=== PATIENT | female | born 1990 | race Caucasian/White ===

== ENCOUNTER 2020-07-30 08:38 | Emergency (ER) | payer OTHER, SELFPAY ==
[2020-07-30 08:51] VITALS: BP 141/91; PULSE 85; RESP 18; TEMP 36.4; O2SAT 100; BMI 34.9
--- NOTE | 2020-07-30 08:56 | DI.US.S_ITS ---
PROCEDURE: US PELVIC COMPLETE INDICATIONS: PELVIC PAIN. EVALUATE FOR IUD PLACEMENT. TECHNIQUE: Real-time scanning was performed of the pelvic organs, with image documentation. Additional endovaginal scanning was necessary due to incomplete visualization of the adnexal and endometrial structures by transabdominal scanning. COMPARISON: None. FINDINGS: Uterus: Uterus is normal in size at 7.5 x 3.4 x 3.1 cm. The endometrium measures 3-4 mm in combined thickness. A small amount of fluid can be seen along the cervix. An IUD is seen at its expected location. The lateral margins of the cross bars are seen near the margins of the uterus itself. Ovaries: The right ovary measures 4.4 x 2.6 x 2 cm. The left ovary measures 4.6 x 2.9 x 2.1 cm and demonstrates a complex cyst that measures up to 2.3 cm. The ovaries otherwise have a normal sonographic appearance. No adnexal masses are seen. Normal appearing arterial waveforms are confirmed to each ovary. Other: There is a moderate amount of complex fluid seen within the right adnexal region. IMPRESSION: The IUD is appropriately located at the uterine fundus. The lateral margins of the IUD crossbars are seen near the lateral margins of the uterus itself. A moderate amount of complex fluid can be seen within the right adnexal region. Although considered to be relatively unlikely, please consider ectopic in this patient with an IUD. Close clinical followup, with serial beta-hCG and serial ultrasound are recommended, if clinically appropriate. There is a complex left ovarian cyst seen a, which most likely relates to a hemorrhagic cyst, measuring up to 2.3 cm. At clinical discretion, a followup pelvic ultrasound could be considered in 6 weeks to assure resolution/ improvement. Dictated by: Brian Bullock M.D. on 07/30/2020 at 9:43 Approved by: Brian Bullock M.D. on 07/30/2020 at 9:48
--- NOTE | 2020-07-30 09:00 | ED.GENADULT ---
HPI - General Adult General Chief complaint: Abdominal Pain Stated complaint: extreme pelvic pain/ think IUD problem Time Seen by Provider: 07/30/20 08:55 Source: patient Mode of arrival: Ambulatory Limitations: no limitations History of Present Illness HPI narrative: Patient is a 30-year-old female who had a Mirena IUD placed in March of 2017 who 2 weeks ago had discomfort in her vagina. She stated that after approximately 10-15 minutes this pain completely resolved. It returned again approximately 5 days ago and She was seen by her primary OBGYN 4 days ago on the [facility] base who did a speculum exam and was able to see the IUD strings however they informed her that they wanted her to have an ultrasound. She states the pain has continued since then and she comes emergency department today for evaluation. Related Data Home Medications Medication Instructions Recorded Confirmed No Known Home Medications 07/30/20 07/30/20 Allergies Allergy/AdvReac Type Severity Reaction Status Date / Time No Known Drug Allergies Allergy Verified 07/30/20 08:54 Review of Systems Constitutional Constitutional: Denies fever(s) Cardiovascular Cardiovascular: Denies chest pain and Denies dyspnea Respiratory Respiratory: Denies dyspnea Gastrointestinal Gastrointestinal: Denies abdominal pain, Denies change in bowel habits, Denies nausea and Denies vomiting Genitourinary Genitourinary: Denies vaginal discharge Comments: Pain inside her vagina Musculoskeletal Musculoskeletal: Denies arthralgias and Denies myalgias Integumentary/Breasts Skin/Breast: Denies rash Neurologic Neurologic: Denies behavioral changes Psychiatric Psychiatric: Denies behavioral changes Hematologic/Lymphatic On Anticoagulants: No Allergic/Immunologic Allergic/Immunologic: Denies urticaria Patient History Medical History Healthy adult Social History Smoking Status: Former smoker Smoking Status: Former smoker alcohol intake frequency: 0-2 drinks per day Substance Use Type: does not use Exam Initial Vital Signs Initial Vital Signs: Vital Signs Temperature 97.6 F 07/30/20 08:51 Pulse Rate 85 07/30/20 08:51 Respiratory Rate 18 07/30/20 08:51 Blood Pressure 141/91 H 07/30/20 08:51 Pulse Oximetry 100 07/30/20 08:51 Const General: cooperative and comfortable Limitations: mental status not altered HENMT Head: normal to inspection and normocephalic Resp Effort & Inspection: normal respiratory effort Cardio Rate: regular rate GI Inspection: non-distended Skin Lesions: no lesions Rashes: no rashes Neuro General: patient alert and patient awake Cognition: normal cognition Extrem General: normal to inspection Psych Appearance: grossly normal and well kempt Course Orders Ordered: ED Orders 07/30/20 08:56 US pelvic complete Stat Vital Signs Vital signs: Vital Signs - 8 hr 07/30/20 08:51 Temperature 97.6 F Pulse Rate 85 Respiratory Rate 18 Blood Pressure 141/91 H Pulse Oximetry 100 Medical Decision Making Lab Data Lab results reviewed: Yes I reviewed the patient's lab results. Labs: Point of Care Testing Test Results Negative Urine Dip Bedside Urine Glucose Negative Bedside Urine Bilirubin - Negative Bedside Urine Ketone - Negative Urine Specific [place] 1.015 Bedside Urine Occult Blood +++ Bedside Urine pH 7.0 Bedside Urine Protein - Negative Bedside Urine Urobilinogen - Negative Bedside Urine Nitrite - Negative Bedside Urine Leukocytes - Negative Esterase Point of care testing: Point of Care Testing Test Results Negative Urine Dip Bedside Urine Glucose Negative Bedside Urine Bilirubin - Negative Bedside Urine Ketone - Negative Urine Specific [place] 1.015 Bedside Urine Occult Blood +++ Bedside Urine pH 7.0 Bedside Urine Protein - Negative Bedside Urine Urobilinogen - Negative Bedside Urine Nitrite - Negative Bedside Urine Leukocytes - Negative Esterase Imaging Data US - IMAGERY ANALYST: Radiologist's Impression: [address] [id number] ReportSigned Patient: Gayathri Will RMR#: [id number]: 1990Acct:[id number]/Sex: te of Service: 07/30/20Loc: EDAccession Number: [id number] Procedure: US pelvic complete Ordering Provider: Bladimir Rogers D.O. PROCEDURE: US PELVIC COMPLETE INDICATIONS: PELVIC PAIN. EVALUATE FOR IUD PLACEMENT. TECHNIQUE: Real-time scanning was performed of the pelvic organs, with image documentation. Additional endovaginal scanning was necessary due to incomplete visualization of the adnexal and endometrial structures by transabdominal scanning. COMPARISON: None. FINDINGS: Uterus: Uterus is normal in size at 7.5 x 3.4 x 3.1 cm. The endometrium measures 3-4 mm in combined thickness. A small amount of fluid can be seen along the cervix. An IUD is seen at its expected location. The lateral margins of the cross bars are seen near the margins of the uterus itself. Ovaries: The right ovary measures 4.4 x 2.6 x 2 cm. The left ovary measures 4.6 x 2.9 x 2.1 cm and demonstrates a complex cyst that measures up to 2.3 cm. The ovaries otherwise have a normal sonographic appearance. No adnexal masses are seen. Normal appearing arterial waveforms are confirmed to each ovary. Other: There is a moderate amount of complex fluid seen within the right adnexal region. IMPRESSION: The IUD is appropriately located at the uterine fundus. The lateral margins of the IUD crossbars are seen near the lateral margins of the uterus itself. A moderate amount of complex fluid can be seen within the right adnexal region. Although considered to be relatively unlikely, please consider ectopic in this patient with an IUD. Close clinical followup, with serial beta-hCG and serial ultrasound are recommended, if clinically appropriate. There is a complex left ovarian cyst seen a, which most likely relates to a hemorrhagic cyst, measuring up to 2.3 cm. At clinical discretion, a followup pelvic ultrasound could be considered in 6 weeks to assure resolution/ improvement. Dictated by: Brian Bullock M.D. on 07/30/2020 at 9:43 Approved by: Brian Bullock M.D. on 07/30/2020 at 9:48 MDM Narrative Medical decision making narrative: Improvement of symptoms during her time here. The ultrasound shows the IUD is in the correct position. A test is negative. Patient declines any possibility of STDs. She did have a pelvic exam couple days ago by her volunteer recruitment coordinator which the patient reported was unremarkable so I feel that we can hold on that for now as her symptoms have not changed it does have not improved. No indication for antibiotics. No indication for surgical intervention. She will contact her OB provider about further evaluation of necessary. She was given return precautions. She expressed understanding and agreement. Discharge Plan Departure Patient Disposition: Home Clinical Impression: Pelvic pain Instructions: DI for Pelvic Pain Activity Restrictions/Additional Instructions: I recommend that you contact your OBGYN provider to discuss further evaluation/treatment if needed. Return to the emergency department for any new or worsening symptoms Prescriptions: No Action No Known Home Medications RF: 0
[2020-07-30 11:40] VITALS: BP 149/77; PULSE 85; RESP 16; O2SAT 99
== END 2020-07-30 11:40 | disposition home or self-care (01) ==
PROVIDERS: Emergency Provider Emergency Medicine
DX: R10.2 Pelvic and perineal pain (principal); Z97.5 Presence of (intrauterine) contraceptive device
CPT/HCPCS: 76830; 76856; 81003; 81025; 99281; 99283

== ENCOUNTER 2020-09-19 22:33 | Emergency (ER) | payer OTHER, SELFPAY ==
[2020-09-19 22:39] VITALS: PULSE 91; O2SAT 100
[2020-09-19 22:40] VITALS: BP 133/80; PULSE 90; O2SAT 100
[2020-09-19] MEDS: SODIUM CHLORIDE 0.9% 1,000 ML 1000 ML IV (22:45)
[2020-09-19] MEDS: FAMOTIDINE 20 MG/50 ML PIGGYBACK 200 MG IV (22:46)
[2020-09-19] MEDS: methylPREDNISolone 125 MG/2 ML VIAL IV (22:46)
[2020-09-19] MEDS: diphenhydrAMINE 50 MG/ML VIAL 25 MG IV (22:48)
[2020-09-19 22:56] VITALS: BP 133/87; PULSE 87; RESP 14; TEMP 36.6; O2SAT 100; BMI 35.4
[2020-09-19 23:00] VITALS: PULSE 79; O2SAT 99
--- NOTE | 2020-09-19 23:23 | ED.ALLEREA ---
HPI - Allergic Reaction General Chief complaint: Allergic Reaction Stated complaint: possible allergic reaction Time Seen by Provider: 09/19/20 22:37 Source: patient Mode of arrival: Ambulatory Limitations: no limitations History of Present Illness HPI narrative: Otherwise healthy 30-year-old female who is here for evaluation of a potential allergic reaction. She states she received her 1st dose of COVID-19 vaccine 2 weeks ago and since that time she has had allergic reaction. She has been taking Zyrtec at home. He is unsure it is exactly what she is reacting to. She did take Benadryl prior to arrival. Throughout the day she noticed swelling to her left upper lower lip and also noticed some hives on her lower back and sides. Related Data Previous Rx's Medication Instructions Recorded prednisone 20 mg PO DAILY 7 Days #7 tab 09/20/20 Allergies Allergy/AdvReac Type Severity Reaction Status Date / Time No Known Drug Allergies Allergy Verified 07/30/20 08:54 Review of Systems Constitutional Constitutional: Denies fever(s) ENT Ears, Nose, Mouth, and Throat: Reports lip swelling Cardiovascular Cardiovascular: Denies chest pain and Denies dyspnea Respiratory Respiratory: Denies cough, Denies dyspnea and Denies wheezing Integumentary/Breasts Skin/Breast: Reports rash Allergic/Immunologic Allergic/Immunologic: Reports urticaria, Reports lip swelling and Denies wheezing Patient History Medical History Healthy adult Social History Smoking Status: Former smoker Smoking Status: Former smoker alcohol intake frequency: 0-2 drinks per day Substance Use Type: does not use Exam Initial Vital Signs Initial Vital Signs: Vital Signs Pulse Rate 91 H 09/19/20 22:39 Pulse Oximetry 100 09/19/20 22:39 Const General: cooperative and comfortable HENMT Head: normal to inspection and normocephalic Nose: external nose normal Mouth: tongue normal and lip abnormal (Swelling left side of upper lower lip) Throat: posterior oropharynx normal, uvula midline and no uvular edema Resp Effort & Inspection: normal respiratory effort Auscultation: clear to auscultation bilaterally Cardio Rate: regular rate Rhythm: regular rhythm Skin Lesions: no lesions Rashes: no rashes Neuro General: patient alert, patient awake and patient oriented x3 Extrem General: normal to inspection and capillary refill normal Psych Appearance: grossly normal and well kempt Course Orders Ordered: Discontinued Medications Diphenhydramine HCl (Diphenhydramine 50 Mg/Ml Vial) 25 mg IV NOW ONE Stop: 09/19/20 22:41 Last Admin: 09/19/20 22:48 Dose: 25 mg Documented by: TERE Sodium Chloride (Normal Saline 0.9%) 1,000 mls @ 1,000 mls/hr IV BOLUS ONE Stop: 09/19/20 23:39 Last Admin: 09/19/20 22:45 Dose: 1,000 mls/hr Documented by: TERE Famotidine (Pepcid) 20 mg in 50 mls @ 200 mls/hr IV NOW ONE Stop: 09/19/20 22:54 Last Infusion: 09/19/20 23:09 Dose: 0 mls/hr Documented by: Admin: 09/19/20 22:46 Dose: 200 mls/hr Documented by: TERE Methylprednisolone (Methylprednisolone 125 Mg/2 Ml Vial) 125 mg IV NOW ONE Stop: 09/19/20 22:41 Last Admin: 09/19/20 22:46 Dose: 125 mg Documented by: TERE Vital Signs Vital signs: Vital Signs - 8 hr 09/19/20 22:39 09/19/20 22:40 09/19/20 22:56 Temperature 97.9 F Pulse Rate 91 H 90 87 Respiratory Rate 14 Blood Pressure 133/80 133/87 Pulse Oximetry 100 100 100 09/19/20 23:00 09/19/20 23:30 09/20/20 00:00 Temperature Pulse Rate 79 71 70 Respiratory Rate Blood Pressure Pulse Oximetry 99 100 100 09/20/20 00:17 Temperature Pulse Rate Respiratory Rate Blood Pressure 132/83 Pulse Oximetry MDM - Allergic Reaction MDM Narrative Medical decision making narrative: Patient is very well appearing. She did have improvement of symptoms with the above therapies however they were not completely resolved at the time of discharge. She was not given epinephrine. Unsure the exact etiology of her allergic reactions however will send her home with steroids for the next couple days. She will continue to take her Zyrtec at home. She was given return precautions and follow-up instructions. She expressed understanding and agreement. Discharge Plan Departure Patient Disposition: Home Clinical Impression: Allergic reaction Instructions: DI for General Allergic Reactions Activity Restrictions/Additional Instructions: A prescription for steroids was electronically transmitted to the [facility] pharmacy. Please take it like we discussed. Also recommend that you continue to take the Zyrtec in the morning like you have been doing. Contact your primary doctor for a follow-up. Return to the emergency department for any new or worsening symptoms Prescriptions: New prednisone 20 mg tablet 20 mg PO DAILY 7 Days Qty: 7 RF: 0
[2020-09-19 23:30] VITALS: PULSE 71; O2SAT 100
[2020-09-20] VITALS: PULSE 70; O2SAT 100
[2020-09-20 00:17] VITALS: BP 132/83
== END 2020-09-20 00:25 | disposition home or self-care (01) ==
PROVIDERS: Emergency Provider Emergency Medicine
DX: T78.40XA Allergy, unspecified, initial encounter (principal)
CPT/HCPCS: 96361; 96365; 96375; 99283; 99284; J1200; J2930